=== PATIENT | female | born 1930 | race Caucasian/White ===

== ENCOUNTER 2017-07-30 15:28 | Inpatient (IN) | payer OTHER, MEDICARE ==
[~2017-07-30] VITALS: Ht 144.8 cm; Wt 58.1 kg
[~2017-07-30 15:28] MED LIST: ALBINS INH; ASPEC81 PO; ATOR-54 PO; INSDGIPEN SUBD; IPRASOL4 INH; LOSA1TAB PO; METH-848 PO; MULTTAB58 PO; NMN5 PO; PREG1CAP70 PO; PRLSR20 PO; TPRSR25 PO
[2017-07-30 23:22] VITALS: BP 160/69; PULSE 69; TEMP 36.9; O2SAT 93
[2017-07-30] MEDS ORDERED: SODIUM CHLORIDE 0.9% 1000ML 1,000 ML IV SCH (23:48)
[2017-07-31] VITALS (10 sets, daily range): BP systolic 135–161; BP diastolic 64–75; PULSE 65–84; TEMP 36.5–37.5; O2SAT 90–99; Ht 144.8 cm; Wt 58.1 kg
[2017-07-31] MEDS ORDERED: MAGNESIUM HYDROXIDE SUSP 30 ML UDC PO PRN
[2017-07-31] MEDS ORDERED: ONDANSETRON INJ 2 MG/ML 2 ML VIAL IV PRN
[2017-07-31] MEDS ORDERED: ACETAMINOPHEN 325 MG TAB PO PRN
[2017-07-31] MEDS ORDERED: POLYETHYLENE (MIRALAX) 17 GM PACK PO PRN
[2017-07-31] MEDS ORDERED: ALUMINUM/MAGNESIUM/SIMETH (MAALOX MAX) 30 ML UDC PO PRN
[2017-07-31] MEDS ORDERED: METHYLPREDNISOLONE IV 60 MG in SYRINGE 0 ML IV ONE (00:15)
--- NOTE | 2017-07-31 00:16 | History and Physical ---
History & Physical Date & Time of Service: Jul 31, 2017 at 00:10 Chief Complaint: Pneumonia Primary Care Physician: Naomi Hawley D.O. History of Present Illness Source: patient 87 year old female direct admit from [facility] for Hospital Acquired Pneumonia. She was brought to [facility] on the as she was "running a fever" and had a productive cough with green/yellow sputum. Her initial CXR at [facility] showed emphysema but was otherwise unremarkable; however the patient had an elevated WCC. At [facility] the patient was started on vanc, cefipime and flagyl and was started on supplemental oxygen. Repeat CXR the following day showed a RUL infiltrate as well as emphysema. At that point the patient was transferred to [facility] for further care. She has had associated decreased appetite and has felt tired. She denies any chest pain, weight loss of blood in her sputum Of note the [facility] and she has a history of aspiration. She was admitted to [facility] one year ago for pneumonia and since that discharge she has lived at a penitentiary. Past Medical/Surgical History HTN HLD Arthritis Dementia Hyperthyroidism DM Paroxysmal Afib Tricuspid regurg and increase PA pressures Social History Smoking Status: Never Smoker Alcohol Use: none Drug Use: none Housing status: penitentiary Occupational Status: retired Immunizations History of Pneumococcal: Yes Allergies Coded Allergies: No Known Allergies (Unverified , 06/19/16) Home Medications Scheduled Aspirin (Aspirin EC Low Dose), 81 MG PO DAILY Atorvastatin (Lipitor), 1 TAB PO HS Insulin Glargine (Lantus Solostar), 10 UNITS SUBD HS Ipratropium-Albuterol (Duoneb), 3 ML INH TIDR Losartan Potassium (Cozaar), 1 TAB PO HS Memantine (Namenda), 5 MG PO BID Methimazole (Methimazole), 1 TAB PO DAILY Metoprolol Succinate (Metoprolol Succinate ER), 25 MG PO BID Multiple Vitamin (Multivitamin), 1 TAB PO DAILY Omeprazole (Prilosec), 20 MG PO BID Pregabalin (Lyrica), 150 MG PO HS Scheduled PRN Albuterol Sulf (Albuterol Sulfate), 2.5 MG INH Q4 PRN for SOB/wheezing Review of Systems Constitutional: + fever, + chills, + fatigue, No sweats, No weight loss Respiratory: + cough, + sputum, No wheezing, No shortness of breath Cardiovascular: No chest pain, No edema, No palpitations Abdomen: No pain, No nausea, No vomiting, No diarrhea, No constipation Musculoskeletal: No joint pain, No muscle pain, No calf pain Genitourinary - Female: No dysuria, No urinary frequency, No urinary urgency Physical Exam Vital Signs Date Time Temp Pulse Resp B/P (MAP) Pulse Ox O2 Delivery O2 Flow Rate FiO2 07/30/17 23:22 36.9 69 19 160/69 (99) 93 Nasal Cannula 4.0 General Appearance: WD/WN, no apparent distress ENT: hearing grossly normal, pharynx normal Neck: no adenopathy, no JVD, no carotid bruits, trachea midline Respiratory/Chest: + decreased breath sounds (bilaterally), + rhonchi (diffuse rhonchi), + wheezing (mild wheezing bilaterally) Cardiovascular: regular rate, rhythm, no edema, normal peripheral pulses, + systolic murmur (2/6) Abdomen/GI: normal bowel sounds, non tender, soft Extremities/Musculoskelatal: no calf tenderness, no pedal edema, normal range of motion, non-tender Neurologic/Psych: alert, normal mood/affect, oriented x 3 Diagnostics Laboratory Results Microbiology Results 07/30/17 Blood Culture, Ordered Pending 07/30/17 Blood Culture, Ordered Pending 07/30/17 Gram Stain, Ordered Pending 07/30/17 Sputum Culture, Ordered Pending Impression Assessment and Plan 87 year old female transferred as a direct admit from [facility] with a hospital acquired pneumonia Hospital Acquired Pneumonia - Start IV antibiotics with Vanc, Cefepime and Azithromycin - Gentle IV hydration with 80 mls/hr - Duoneb TID - IV methylprednisolone given as one time dose as patient wheezing, reassess for continuation - Oxygen via nasal cannula w/ titration to 88-92% - Order blood cultures, sputum cultures - Ordered repeat CXR for the AM - Follow CBC and procalcitonin Paroxysmal Afib - currently in NSR - monitor on telemetry - continue sotalol 80 bid, EKG showed prolonged QT of 457, talk to cardiology and considering changing rate control HTN/tricuspid regurg - On lasix 20mg - Echo in 2017 showed EF of 60% with severe tricuspid regurg and increased PA pressures Dementia - continue namenda HLD - continue statin Depression - continue zoloft Hyperthyroidism - continue methimazole Hx of DM - no longer requiring medication DVT prophylaxis - heparin DNR Resident Physician Supervision Note: I was present with Dr. Gr during the history and exam. I discussed the case with the resident and agree with the findings and plan as documented in the note. Any exceptions or clarifications are listed here: 87 y/o F HTN, PAF, dementia - presenting direct from [facility] with HCAP OE AAO x 2 S1,2 faint +m B/L crackles - poor effort - coughing during exam NT, ND No CCE P: Placed on Cefepime, Vanc, Zithro for HCAP - nebs provided - would consider steroids if breathing does not improve Cont Sotalol for PAF Pt will need PT/OT - very weak and may need rehab placement Above discussed with pt and resident Documented By: Catalino Gonzalez Level of Care Telemetry Resuscitation Status DO NOT RESUSCITATE VTE Prophylaxis VTE Risk Assessment Done? Y/N: Yes Risk Level: Moderate Given or contraindicated: Enoxaparin (Lovenox)SQ Social Service Consult Lives in Halfway
[2017-07-31] MEDS ORDERED: VANCOMYCIN CONSULT ACTIVE PRN (01:00)
[2017-07-31] MEDS ORDERED: Azithromycin: PHARMACY CONSULT IN PROGRESS PRN (01:00)
[2017-07-31] MEDS ORDERED: AZITHROMYCIN IV 500 MG in DEXTROSE 5% 250ML 250 ML IV SCH (01:00)
[2017-07-31] MEDS ORDERED: CEFEPIME CONSULT ACTIVE PRN ×2 (01:00)
[2017-07-31 01:37] LABS: CREATININE 0.62 mg/dl (0.60-1.20)
[2017-07-31] MEDS ORDERED: VANCOMYCIN INJ 1,250 MG in SODIUM CHLORIDE 0.9% 250ML 250 ML IV ONE (04:00)
[2017-07-31] MEDS: CEFEPIME IV 2,000 MG in DEXTROSE 5% 100ML 100 ML IV SCH ×2 (05:10→15:48)
[2017-07-31 06:03] LABS: HEMATOCRIT 32.2 % (37-47); MEAN CELL VOLUME 84.1 fL (80-100); MEAN CORPUSCULAR HEMOGLOBIN 25.8 pg (25-34); MEAN CORPUSCULAR HGB CONC 30.7 g/dl (32-36); MEAN PLATELET VOLUME 11.2 fL (7.4-10.4); PLATELET COUNT 240 K/uL (130-400); RED BLOOD COUNT 3.83 M/uL (4.2-5.4); WHITE BLOOD COUNT 9.26 K/uL (4.8-10.8)
[2017-07-31 06:20] LABS: INR 1.1 (0.9-1.1); PARTIAL THROMBOPLASTIN RATIO 1.2; PROTHROMBIN TIME (PATIENT) 11.3 SECONDS (9.0-12.0)
[2017-07-31 06:38] LABS: BUN/CREATININE RATIO 21.1 (10-20); CALCIUM 8.6 mg/dl (8.5-10.1); CREATININE 0.55 mg/dl (0.60-1.20); POTASSIUM 3.9 mmol/L (3.5-5.1)
[2017-07-31] MEDS: ALBUT/IPRATROP 3MG/0.5MG NEB 3 ML VIAL INH SCH ×2 (06:53→14:04)
[2017-07-31] MEDS: ENOXAPARIN 30 MG/0.3 ML SYR SC SCH (08:13)
[2017-07-31] MEDS: MULTIVITAMIN TAB PO SCH (08:13)
[2017-07-31] MEDS: PANTOprazole SOD 40 MG TAB PO SCH ×2 (08:13→21:41)
[2017-07-31] MEDS: METHIMAZOLE 5 MG TAB PO SCH (08:13)
[2017-07-31] MEDS: MEMANTINE 5 MG TAB PO SCH ×2 (08:13→21:41)
[2017-07-31] MEDS: ASPIRIN 81 MG ECTAB PO SCH (08:14)
[2017-07-31] MEDS: SOTALOL HCL 80 MG TAB PO SCH ×2 (08:14→21:41)
[2017-07-31] MEDS: FUROSEMIDE 20 MG TAB PO SCH (08:14)
[2017-07-31] MEDS: SERTRALINE HCL 50 MG TAB PO SCH (08:14)
--- NOTE | 2017-07-31 08:26 | Family Medicine Progress Note ---
Progress Note Date of Service Jul 31, 2017. Subjective Pt evaluation today including: conversation w/ patient, conversation w/ family , physical exam, chart review, lab review, review of studies, conversation w/ marketing operations consultant, review of inpatient medication list Patient lying comfortably in bed. States that she is feeling no better or worse than previous. She continues to have coughing, but states that she is bringing less up than previous. She denies dyspnea with oxy mask on. She denies chest pain, palpitations, lightheadedness, nausea, abdominal pain. ROS unremarkable except as noted above. Objective Vital Signs Date Time Temp Pulse Resp B/P (MAP) Pulse Ox O2 Delivery O2 Flow Rate FiO2 07/31/17 06:13 36.7 81 18 156/74 (101) 93 Oxymask 4.0 07/31/17 04:00 96 Nasal Cannula 4.0 07/31/17 00:01 37.5 71 24 158/75 96 Nasal Cannula 4.0 07/30/17 23:22 36.9 69 19 160/69 (99) 93 Nasal Cannula 4.0 Physical Exam General Appearance: WD/WN, no apparent distress Eyes: normal inspection ENT: + pertinent finding (hard a hearing) Neck: supple, no adenopathy Respiratory/Chest: no respiratory distress, no accessory muscle use, + decreased breath sounds, + rales, + rhonchi, + wheezing, + pertinent finding ( decreased air movement bilaterally) Cardiovascular: regular rate, rhythm, + normal peripheral pulses Abdomen: normal bowel sounds, non tender, soft Extremities: normal inspection, no pedal edema, no calf tenderness Neurologic/Psychiatric: alert, normal mood/affect Skin: normal color, warm/dry, no rash Laboratory Results Results Past 24 Hours Test 07/31/17 01:02 07/31/17 05:25 Range/Units Creatinine 0.62 0.55 0.60-1.20 mg/dl Est Creatinine Clear Calc Drug Dose 44.4 50.1 ml/min Estimated GFR () 92.7 96.4 Estimated GFR (Non- 79.9 83.2 Random Vancomycin Level 5.2 mcg/ml White Blood Count 9.26 4.8-10.8 K/uL Red Blood Count 3.83 4.2-5.4 M/uL Hemoglobin 9.9 12.0-16.0 g/dL Hematocrit 32.2 37-47 % Mean Corpuscular Volume 84.1 80-100 fL Mean Corpuscular Hemoglobin 25.8 25-34 pg Mean Corpuscular Hemoglobin Concent 30.7 32-36 g/dl RDW Standard Deviation 48.1 36.4-46.3 fL RDW Coefficient of Variation 15.6 11.5-14.5 % Platelet Count 240 130-400 K/uL Mean Platelet Volume 11.2 7.4-10.4 fL Prothrombin Time 11.3 9.0-12.0 SECONDS Prothromb Time International Ratio 1.1 0.9-1.1 Activated Partial Thromboplast Time 30.7 21.0-31.0 SECONDS Partial Thromboplastin Ratio 1.2 Sodium Level 134 136-145 mmol/L Potassium Level 3.9 3.5-5.1 mmol/L Chloride Level 99 98-107 mmol/L Carbon Dioxide Level 30 21-32 mmol/L Anion Gap 5.0 3-11 mmol/L Blood Urea Nitrogen 12 7-18 mg/dl BUN/Creatinine Ratio 21.1 10-20 Random Glucose 208 70-99 mg/dl Calcium Level 8.6 8.5-10.1 mg/dl Phosphorus Level 3.0 2.5-4.9 mg/dl Magnesium Level 1.9 1.8-2.4 mg/dl Procalcitonin < 0.05 0-0.5 ng/ml Microbiology Results 07/31/17 Blood Culture, Received Pending 07/31/17 Blood Culture, Received Pending Assessment and Plan 87 year old female directly admitted from [facility] with a healthcare associated pneumonia. Healthcare associated Pneumonia - Oxygen via NC/oxy mask. Titration to maintain sats 88-92% - CXR 07/31/17 shows: Hyperinflation suggesting emphysema, and RUL opacity. Initial procal negative. - Continue IV antibiotics: vancomycin and cefepime. Azithromycin switched to levofloxacin. - IV methylprednisolone 60mg TID. Plans for 2-3 day burst only. - DuoNeb TID, flutter valve - Blood cultures pending, sputum sample not yet collected for culturing - Trend CBC Paroxysmal Afib - Currently in NSR. Continue to monitor on telemetry - Continue sotalol 80 bid - Initial EKG showed prolonged QT of 457. Monitor on EKG tomorrow to assure that sotolol and levofloxacin don't further prolonged QT HTN/tricuspid regurg - On furosemide 20mg and Losartan 25mg qHS. Metoprolol 25mg BID held at this time due to initiation of sotalol, but can be added if necessary and adequate HR. - Echo in 2016 showed EF of 60% with severe tricuspid regurg and increased PA pressures Dementia - Continue Namenda HLD - Continue atorvastatin 20mg Depression - Continue Zoloft Hyperthyroidism - Continue methimazole Hx of DM - HbA1c in June 2017 was 7.3 - ISS + BSG ac/hs DVT prophylaxis -Enoxaparin 30 units SC DNR Continued [facility] stay due to: multiple IV medications needed Discharge planning: halfway facility Resident Tracking Resident Involvement: Resident Care Provided Care Provided: Adult Hospital Medicine History Resident Physician Supervision Note: I was present with Dr. Watkins during the history and exam. I discussed the case with the resident and agree with the findings and plan as documented in the note. Any exceptions or clarifications are listed here. Pt seen and examined at bedside. Reports shortness of breath is minimally improved from admission but is more comfortable on oxygen at this time. Cough is persistent and nonproductive. Reports no fever, nausea, constipation. General Appearance: no apparent distress, thin Respiratory: chest non-tender, no respiratory distress, decreased breath sounds , rhonchi, wheezing (significantly decreased breath sounds throughout) Cardiovascular: normal peripheral pulses, regular rate, rhythm, systolic murmur (2/) Neurologic/Psychiatric: alert, normal mood/affect Assessment/Plan 87 y/o female h/o dementia, atrial fibrillation presents w/ HCAP HCAP - continue vanc, cefepime, change azithromycin to levofloxacin, d/c IVF ( tolerating PO), continue nebs, f/u BCx. If any worsening/failure to improve, will start IV solu-medrol. Encourage good pulmonary toilet. Atrial fibrillation - telemetry monitoring, continue sotaolol HTN w/ h/o tricuspid regurgitation - EF 60% - continue lasix Dementia - continue namenda HLD - continue statin Depression - continue zoloft Hyperthyroidism - continue methimazole DMII - sugars stable at home but may require ISS 2/2 steroid induced hyperglycemia if intervention is required
--- NOTE | 2017-07-31 09:22 | DIAGNOSTIC IMAGING REPORT ---
CHEST 2 VIEWS ROUTINE CLINICAL HISTORY: 87 years-old Female presenting with Pneumonia. TECHNIQUE: PA and lateral views of the chest were obtained. COMPARISON: 07/05/2016. FINDINGS: Cardiac silhouette top normal in size. Significant interval clearance of previously noted patchy bilateral opacities. Right upper lung opacity may be present. Lungs hyperinflated. No large effusion or pneumothorax. Degenerative changes of the thoracic spine. Upper abdomen normal. IMPRESSION: 1. Hyperinflation suggests emphysema. 2. Right upper lung opacity raises concern for an acute infiltrate/pneumonia. Alternatively, this could represent scarring in the setting of prior widespread patchy opacities. Electronically signed by: Nasir rWight M.D. 07/31/2017 9:21 AM Dictated Date/Time: 07/31/2017 9:18 AM
--- NOTE | 2017-07-31 11:09 | Pharmacy Progress Note ---
Pharmacy Antibiotic Consult Date of Service: Jul 31, 2017. Pharmacy Dosing Scope Pharmacy is consulted to initiate vancomycin IV dosing therapy, order appropriate labs and adjust drug dose/frequency. Subjective The patient is a 87 year old female admitted on Jul 30, 2017 at 22:51. Objective Height (Feet): 4 Height (Inches): 9.00 Weight (Kilograms): 56.400 Lab Results (24hrs): Test 07/31/17 01:02 07/31/17 05:25 Creatinine 0.62 mg/dl (0.60-1.20) 0.55 mg/dl (0.60-1.20) Est Creatinine Clear Calc Drug Dose 44.4 ml/min 50.1 ml/min Estimated GFR () 92.7 96.4 Estimated GFR (Non- 79.9 83.2 Random Vancomycin Level 5.2 mcg/ml White Blood Count 9.26 K/uL (4.8-10.8) Red Blood Count 3.83 M/uL (4.2-5.4) Hemoglobin 9.9 g/dL (12.0-16.0) Hematocrit 32.2 % (37-47) Mean Corpuscular Volume 84.1 fL (80-100) Mean Corpuscular Hemoglobin 25.8 pg (25-34) Mean Corpuscular Hemoglobin Concent 30.7 g/dl (32-36) RDW Standard Deviation 48.1 fL (36.4-46.3) RDW Coefficient of Variation 15.6 % (11.5-14.5) Platelet Count 240 K/uL (130-400) Mean Platelet Volume 11.2 fL (7.4-10.4) Prothrombin Time 11.3 SECONDS (9.0-12.0) Prothromb Time International Ratio 1.1 (0.9-1.1) Activated Partial Thromboplast Time 30.7 SECONDS (21.0-31.0) Partial Thromboplastin Ratio 1.2 Sodium Level 134 mmol/L (136-145) Potassium Level 3.9 mmol/L (3.5-5.1) Chloride Level 99 mmol/L (98-107) Carbon Dioxide Level 30 mmol/L (21-32) Anion Gap 5.0 mmol/L (3-11) Blood Urea Nitrogen 12 mg/dl (7-18) BUN/Creatinine Ratio 21.1 (10-20) Random Glucose 208 mg/dl (70-99) Calcium Level 8.6 mg/dl (8.5-10.1) Procalcitonin < 0.05 ng/ml (0-0.5) Recent Pertinent Medications Patient also started on cefepime and azithromycin. Spoke with resident about the indication for azithromycin if this is a HAP. Also expressed caution with use of azithromycin or FQs with sotalol therapy. Assessment & Plan Patient assisted resident transferred in from [facility] with suspected HAP. Scr most likely not indicative of true renal function. Loading dose: 1250 mg IV X 1 dose then: 750 mg IV every 24 hours. Goal trough level estimate: between 15 - 20 mcg/mL. Peak and trough or random level has been ordered for: @0130 (may alter as clinically indicated) Pharmacy will continue to follow and will adjust dose/frequency as necessary. Thank you
[2017-07-31 11:52] LABS: MAGNESIUM 1.9 mg/dl (1.8-2.4)
[2017-07-31] MEDS: LEVOFLOXACIN / D5W 500 MG in PREMIXED IN D5W 100 ML IV SCH (13:58)
[2017-07-31] MEDS ORDERED: GLUCAGON FOR INJ 1 MG VIAL SQ PRN (19:15)
[2017-07-31] MEDS ORDERED: GLUCOSE 40% GEL 15 GM TUBE PO PRN (19:15)
[2017-07-31] MEDS ORDERED: GLUCOSE 10 TABS/TUBE PO PRN (19:15)
[2017-07-31] MEDS: INSULIN ASPART 100 UNITS/ML 3 ML PEN SC SCH (21:00)
[2017-07-31] MEDS ORDERED: METOPROLOL SUCC 25MG EXT REL TAB PO SCH (21:00)
[2017-07-31] MEDS: ATORVASTATIN 20 MG TAB PO SCH (21:41)
[2017-07-31] MEDS: LOSARTAN POTASSIUM 25 MG TAB PO SCH (21:41)
[2017-07-31] MEDS: METHYLPREDNISOLONE IV 60 MG in SYRINGE 0 ML IV SCH (21:41)
[2017-07-31] MEDS: PREGABALIN 150 MG CAP PO SCH (21:44)
[2017-08-01] VITALS (16 sets, daily range): BP systolic 144–189; BP diastolic 57–73; PULSE 60–73; TEMP 36.4–36.9; O2SAT 90–97
[2017-08-01] MEDS: CEFEPIME IV 2,000 MG in DEXTROSE 5% 100ML 100 ML IV SCH ×2 (02:14→15:18)
[2017-08-01] MEDS: VANCOMYCIN INJ 750 MG in SODIUM CHLORIDE 0.9% 250ML 250 ML IV SCH (02:15)
[2017-08-01] MEDS: METHYLPREDNISOLONE IV 60 MG in SYRINGE 0 ML IV SCH ×3 (05:03→20:40)
[2017-08-01 06:16] LABS: HEMATOCRIT 29.7 % (37-47); MEAN CORPUSCULAR HEMOGLOBIN 26.8 pg (25-34); MEAN CORPUSCULAR HGB CONC 32.3 g/dl (32-36); MEAN PLATELET VOLUME 10.8 fL (7.4-10.4); PLATELET COUNT 249 K/uL (130-400); RED BLOOD COUNT 3.58 M/uL (4.2-5.4); WHITE BLOOD COUNT 9.47 K/uL (4.8-10.8)
[2017-08-01 06:53] LABS: BUN/CREATININE RATIO 28.2 (10-20); CALCIUM 8.1 mg/dl (8.5-10.1); CREATININE 0.62 mg/dl (0.60-1.20); POTASSIUM 4.1 mmol/L (3.5-5.1)
[2017-08-01] MEDS: ALBUT/IPRATROP 3MG/0.5MG NEB 3 ML VIAL INH SCH ×3 (07:18→18:57)
--- NOTE | 2017-08-01 08:29 | Clinical Documentation Query ---
CLINICAL DOCUMENTATION QUERY 87 year old female direct admit from [facility] for Hospital Acquired Pneumonia. In your clinical opinion is this patient being managed for: ( x ) Possible Staphylococcal Vs. Gram negative pneumonia in setting of HCAP treated with IV IV Cefepime, IV Vancomycin, IV Levofloxacin ( ) Not Agree ( ) Other explanation of clinical findings (Please Explain) ( ) Unable to determine (Please Define) ( ) Need to Discuss The medical record reflects the following clinical findings, treatment, and risk factors. Clinical Indicators: CXR with right RUL infiltrate. Transfer from [facility] for more definitive treatment here. Exam reveals + decreased breath sounds (bilaterally), + rhonchi (diffuse rhonchi), & + wheezing (mild wheezing bilaterally) Treatment: IV Cefepime, IV Vancomycin, IV Levofloxacin, Nebs, IV Solumedrol Risk Factors: Age, emphysema, HCAP Please clarify and document your clinical opinion in the progress notes and discharge summary. Terms such as "probable", "suspected", "likely", "questionable", "possible", or "still to be ruled out" are acceptable. IF IN AGREEMENT, YOU MUST DOCUMENT ABOVE DIAGNOSTIC STATEMENT IN DAILY PROGRESS NOTES AND DISCHARGE SUMMARY. This document is not part of the patient's record. Thank You, Rubens Stone, JUAN [phone]
[2017-08-01] MEDS: SOTALOL HCL 80 MG TAB PO SCH ×2 (09:04→20:40)
[2017-08-01] MEDS: PANTOprazole SOD 40 MG TAB PO SCH ×2 (09:04→20:39)
[2017-08-01] MEDS: SERTRALINE HCL 50 MG TAB PO SCH (09:04)
[2017-08-01] MEDS: MULTIVITAMIN TAB PO SCH (09:04)
[2017-08-01] MEDS: ASPIRIN 81 MG ECTAB PO SCH (09:05)
[2017-08-01] MEDS: FUROSEMIDE 20 MG TAB PO SCH (09:05)
[2017-08-01] MEDS: METHIMAZOLE 5 MG TAB PO SCH (09:06)
[2017-08-01] MEDS: ENOXAPARIN 30 MG/0.3 ML SYR SC SCH (09:08)
[2017-08-01] MEDS: MEMANTINE 5 MG TAB PO SCH ×2 (09:08→20:40)
[2017-08-01] MEDS: INSULIN ASPART 100 UNITS/ML 3 ML PEN SC SCH ×4 (09:10→20:50)
--- NOTE | 2017-08-01 11:36 | Family Medicine Progress Note ---
Progress Note Date of Service Aug 01, 2017. Subjective Pt evaluation today including: conversation w/ patient, physical exam, chart review, lab review, conversation w/ solutions delivery consultant, review of inpatient medication list Pain: none PO Intake: good Voiding: no voiding problems Patient no longer with cough Denies any fevers, chills, night sweats or chest pain Feeling better and appetite improved Still on oxygen via nasal cannula Is wondering when she will be going home Constitutional: No fever, No chills, No sweats Respiratory: No cough, No sputum, No wheezing, No shortness of breath Cardiovascular: No chest pain, No edema, No palpitations Abdomen: No pain, No nausea, No vomiting, No diarrhea Musculoskeletal: No joint pain, No muscle pain Heme: No abnormal bleeding/bruising Skin: No rash, No itch, No new/changing skin lesions Medications Current Inpatient Medications Medications (Trade) Dose Ordered Sig/Shweta Route Start Time Stop Time Status Last Admin Dose Admin Enoxaparin Sodium (Lovenox Inj) 30 mg Q24H SC 07/31/17 09:00 08/30/17 08:59 08/01/17 09:08 30 MG Acetaminophen (Tylenol Tab) 650 mg Q4H PRN PO 07/31/17 00:00 08/30/17 00:00 Al Hydrox/Mg Hydrox/Simethicone (Maalox Max Susp) 15 ml Q4H PRN PO 07/31/17 00:00 08/30/17 00:00 Magnesium Hydroxide (Milk Of Magnesia Susp) 30 ml Q12H PRN PO 07/31/17 00:00 08/30/17 00:00 Ondansetron HCl (Zofran Inj) 4 mg Q6H PRN IV 07/31/17 00:00 08/30/17 00:00 Polyethylene (Miralax Powder Packet) 17 gm DAILY PRN PO 07/31/17 00:00 08/30/17 00:00 Cefepime HCl 2000 mg/Dextrose 112.5 ml @ 200 mls/hr Q12H IV 07/31/17 03:00 08/07/17 02:59 08/01/17 02:14 200 MLS/HR Aspirin (Ecotrin Tab) 81 mg DAILY PO 07/31/17 09:00 08/30/17 08:59 08/01/17 09:05 81 MG Atorvastatin Calcium (Lipitor Tab) 20 mg HS PO 07/31/17 21:00 08/30/17 20:59 07/31/17 21:41 20 MG Albuterol/ Ipratropium (Duoneb) 3 ml TIDR INH 07/31/17 09:00 08/30/17 08:59 08/01/17 07:18 3 ML Memantine (Namenda Tab) 5 mg BID PO 07/31/17 09:00 08/30/17 08:59 08/01/17 09:08 5 MG Methimazole (Methimazole Tab) 5 mg DAILY PO 07/31/17 09:00 08/30/17 08:59 08/01/17 09:06 5 MG Multivitamins (Multivitamin Tab) 1 tab DAILY PO 07/31/17 09:00 08/30/17 08:59 08/01/17 09:04 1 TAB Pantoprazole Sodium (Protonix Tab) 40 mg BID PO 07/31/17 09:00 08/30/17 08:59 08/01/17 09:04 40 MG Furosemide (Lasix Tab) 20 mg QAM PO 07/31/17 09:00 08/30/17 08:59 08/01/17 09:05 20 MG Sertraline HCl (Zoloft Tab) 25 mg QAM PO 07/31/17 09:00 08/30/17 08:59 08/01/17 09:04 25 MG Sotalol HCl (Betapace Tab) 80 mg BID PO 07/31/17 09:00 08/30/17 08:59 08/01/17 09:04 80 MG Vancomycin HCl (Consult) 1 ea UD PRN N/A 07/31/17 01:00 08/30/17 00:59 Cefepime HCl (Consult) 1 ea UD PRN N/A 07/31/17 01:00 08/30/17 00:59 Vancomycin HCl 750 mg/Sodium Chloride 265 ml @ 125 mls/hr Q24H IV 08/01/17 02:00 08/08/17 01:59 08/01/17 02:15 125 MLS/HR Levofloxacin 500 mg/Prmx 100 ml @ 100 mls/hr DAILY@1300 IV 07/31/17 13:00 08/07/17 12:59 07/31/17 13:58 100 MLS/HR Methylprednisolone Sodium Succinate 60 mg/Syringe 0.96 ml @ 1.5 mls/min Q8H IV 07/31/17 21:00 08/30/17 20:59 08/01/17 05:03 1.5 MLS/MIN Pregabalin (Lyrica Cap) 150 mg HS PO 07/31/17 21:00 08/30/17 20:59 07/31/17 21:44 150 MG Glucagon (Glucagon Inj) 1 mg UD PRN SQ 07/31/17 19:15 08/30/17 19:14 Glucose (Glucose 40% Gel) UD PRN PO 07/31/17 19:15 08/30/17 19:14 Glucose (Glucose Chew Tab) 1 tabs UD PRN PO 07/31/17 19:15 08/30/17 19:14 Insulin Aspart (novoLOG ASPART) SLIDING SCALE If C... ACHS SC 07/31/17 21:00 08/30/17 20:59 08/01/17 09:10 6 UNITS Losartan Potassium (coZAAR TAB) 25 mg HS PO 07/31/17 21:00 08/30/17 20:59 07/31/17 21:41 25 MG Objective Vital Signs Date Time Temp Pulse Resp B/P (MAP) Pulse Ox O2 Delivery O2 Flow Rate FiO2 08/01/17 07:18 67 18 95 Nasal Cannula 3.0 08/01/17 07:15 36.5 72 24 156/73 (100) 94 Nasal Cannula 2.5 08/01/17 04:06 Nasal Cannula 4.0 08/01/17 04:05 36.7 73 19 152/66 (94) 91 Nasal Cannula 4.0 08/01/17 00:27 36.9 65 19 172/65 (100) 90 Nasal Cannula 4.0 08/01/17 00:26 Nasal Cannula 4.0 07/31/17 20:11 37.0 77 20 135/64 (87) 90 Nasal Cannula 2.0 07/31/17 20:00 Nasal Cannula 4.0 07/31/17 19:30 78 18 96 Mask 3.0 07/31/17 16:05 Oxymask 4.0 07/31/17 15:44 36.5 65 16 161/74 (103) 99 Mask 5.0 07/31/17 14:06 74 20 98 Mask 5.0 07/31/17 12:05 Oxymask 4.0 Physical Exam General Appearance: WD/WN, no apparent distress Respiratory/Chest: lungs clear, no respiratory distress, no accessory muscle use, + decreased breath sounds (at the bases), + pertinent finding (poor inspiratory effort) Cardiovascular: regular rate, rhythm, no JVD, no murmur Abdomen: normal bowel sounds, non tender, soft Extremities: non-tender, no pedal edema, no calf tenderness Neurologic/Psychiatric: alert, normal mood/affect, oriented x 3 Skin: normal color, warm/dry, no rash Assessment and Plan 87 year old female directly admitted from [facility] with a healthcare associated pneumonia. Healthcare associated Pneumonia - Oxygen via NC/oxy mask. Titration to maintain sats 88-92% - CXR 07/31/17 shows: Hyperinflation suggesting emphysema, and RUL opacity. Initial procal negative. - Continue IV antibiotics: vancomycin and cefepime. Azithromycin switched to levofloxacin. - IV methylprednisolone 60mg TID. Plans for 2-3 day burst only. - DuoNeb TID, flutter valve - Blood cultures negative to date and without a WCC Paroxysmal Afib - Currently in NSR. Continue to monitor on telemetry - Continue sotalol 80 bid - Initial EKG showed prolonged QT of 457. Monitor on EKG tomorrow to assure that sotolol and levofloxacin don't further prolonged QT HTN/tricuspid regurg - On furosemide 20mg and Losartan 25mg qHS. Metoprolol 25mg BID held at this time due to initiation of sotalol, but can be added if necessary and adequate HR. - Echo in 2017 showed EF of 60% with severe tricuspid regurg and increased PA pressures Dementia - Continue Namenda HLD - Continue atorvastatin 20mg Depression - Continue Zoloft Hyperthyroidism - Continue methimazole Hx of DM - HbA1c in June 2017 was 7.3 - ISS + BSG ac/hs DVT prophylaxis -Enoxaparin 30 units SC DISPO: Back to senior living, ordered PT/OT DNR Anticipate d/c in am. Continued [facility] stay due to: multiple IV medications needed Reviewed: Pt Seen/Exam by Me History breathing much better denies any concerns Constitutional: denies: fever Respiratory: negative: short of breath Cardiovascular: denies chest pain General Appearance: no apparent distress Respiratory: lungs clear, no respiratory distress Cardiovascular: regular rate, rhythm Neurologic/Psychiatric: alert, oriented x 3 (hard of hearing though) Skin Characteristics: warm/dry Assessment/Plan Resident Physician Supervision Note: I was present with Dr. Fournier in bedside. I verified the jett history and physical, reviewed labs and image studies, discussed the case with the resident and agree with the findings and care plan.
[2017-08-01] MEDS: LEVOFLOXACIN / D5W 500 MG in PREMIXED IN D5W 100 ML IV SCH (13:07)
[2017-08-01] MEDS ORDERED: PREGABALIN 150 MG CAP ONE (20:33)
[2017-08-01] MEDS: ATORVASTATIN 20 MG TAB PO SCH (20:39)
[2017-08-01] MEDS: LOSARTAN POTASSIUM 25 MG TAB PO SCH (20:39)
[2017-08-01] MEDS: PREGABALIN 150 MG CAP PO SCH (20:39)
[2017-08-02] VITALS (8 sets, daily range): BP systolic 158–168; BP diastolic 63–74; PULSE 50–68; TEMP 36.4–36.7; O2SAT 90–97
[2017-08-02] MEDS: VANCOMYCIN INJ 750 MG in SODIUM CHLORIDE 0.9% 250ML 250 ML IV SCH (03:10)
[2017-08-02] MEDS: CEFEPIME IV 2,000 MG in DEXTROSE 5% 100ML 100 ML IV SCH (03:10)
--- NOTE | 2017-08-02 04:44 | Clinical Documentation Query ---
CLINICAL DOCUMENTATION QUERY 87 year old female direct admit from [facility] for Hospital Acquired Pneumonia. In your clinical opinion is this patient being managed for: ( x ) Possible Staphylococcal Vs. Gram negative pneumonia in setting of HCAP treated with IV IV Cefepime, IV Vancomycin, IV Levofloxacin ( ) Not Agree ( ) Other explanation of clinical findings (Please Explain) ( ) Unable to determine (Please Define) ( ) Need to Discuss The medical record reflects the following clinical findings, treatment, and risk factors. Clinical Indicators: CXR with right RUL infiltrate. Transfer from [facility] for more definitive treatment here. Exam reveals + decreased breath sounds (bilaterally), + rhonchi (diffuse rhonchi), & + wheezing (mild wheezing bilaterally) Treatment: IV Cefepime, IV Vancomycin, IV Levofloxacin, Nebs, IV Solumedrol Risk Factors: Age, emphysema, HCAP Please clarify and document your clinical opinion in the progress notes and discharge summary. Terms such as "probable", "suspected", "likely", "questionable", "possible", or "still to be ruled out" are acceptable. IF IN AGREEMENT, YOU MUST DOCUMENT ABOVE DIAGNOSTIC STATEMENT IN DAILY PROGRESS NOTES AND DISCHARGE SUMMARY. This document is not part of the patient's record. Thank You, Rubens Stone, JUAN [phone]
[2017-08-02] MEDS: METHYLPREDNISOLONE IV 60 MG in SYRINGE 0 ML IV SCH ×2 (05:57→13:09)
[2017-08-02 06:11] LABS: COMPLETE YES; HEMATOCRIT 32.9 % (37-47); IG% 0.3 %; LYMPH % 5.2 %; LYMPH ABS # 0.51 K/uL (1.2-3.4); MEAN CELL VOLUME 84.1 fL (80-100); MEAN CORPUSCULAR HEMOGLOBIN 26.1 pg (25-34); MONO % 2.7 %; NEUT % 91.8 %; PLATELET COUNT 281 K/uL (130-400); RED BLOOD COUNT 3.91 M/uL (4.2-5.4); WHITE BLOOD COUNT 9.87 K/uL (4.8-10.8)
[2017-08-02 06:55] LABS: CREATININE 0.61 mg/dl (0.60-1.20)
[2017-08-02] MEDS: ALBUT/IPRATROP 3MG/0.5MG NEB 3 ML VIAL INH SCH (07:09)
[2017-08-02] MEDS: SERTRALINE HCL 50 MG TAB PO SCH (08:48)
[2017-08-02] MEDS: PANTOprazole SOD 40 MG TAB PO SCH (08:48)
[2017-08-02] MEDS: ASPIRIN 81 MG ECTAB PO SCH (08:48)
[2017-08-02] MEDS: FUROSEMIDE 20 MG TAB PO SCH (08:49)
[2017-08-02] MEDS: SOTALOL HCL 80 MG TAB PO SCH (08:51)
[2017-08-02] MEDS: MEMANTINE 5 MG TAB PO SCH (08:51)
[2017-08-02] MEDS: METHIMAZOLE 5 MG TAB PO SCH (08:51)
[2017-08-02] MEDS: MULTIVITAMIN TAB PO SCH (08:52)
[2017-08-02] MEDS: ENOXAPARIN 30 MG/0.3 ML SYR SC SCH (08:53)
[2017-08-02] MEDS: INSULIN ASPART 100 UNITS/ML 3 ML PEN SC SCH ×2 (08:57→12:12)
--- NOTE | 2017-08-02 10:18 | Pharmacy Progress Note ---
Automatic IV to PO Conversion Date of Service: Aug 02, 2017. Scope Pharmacy has identified patient as an appropriate candidate for automatic intravenous to oral conversion. Eligible medication: LVQ 500mg IV every 24 hours. Day # 2 of IV therapy. Subjective The patient is a 87 year old female admitted on Jul 30, 2017 at 23:48 for Pneumonia. Objective Vital Signs: Vital Signs Past 12 Hours Date Time Temp Pulse Resp B/P (MAP) Pulse Ox O2 Delivery O2 Flow Rate FiO2 08/02/17 08:14 36.4 60 16 161/69 (99) 90 Nasal Cannula 08/02/17 07:09 68 16 97 Nasal Cannula 3.0 08/02/17 04:00 93 Nasal Cannula 3.0 08/02/17 03:59 36.7 66 17 168/63 (98) 95 Nasal Cannula 2.0 08/01/17 23:59 93 Nasal Cannula 3.0 08/01/17 23:57 36.5 61 18 169/66 (100) 93 Nasal Cannula 2.0 White Blood Count: Test 08/02/17 05:39 White Blood Count 9.87 K/uL (4.8-10.8) Red Blood Count 3.91 M/uL (4.2-5.4) Hemoglobin 10.2 g/dL (12.0-16.0) Hematocrit 32.9 % (37-47) Mean Corpuscular Volume 84.1 fL (80-100) Mean Corpuscular Hemoglobin 26.1 pg (25-34) Mean Corpuscular Hemoglobin Concent 31.0 g/dl (32-36) Platelet Count 281 K/uL (130-400) Mean Platelet Volume 11.0 fL (7.4-10.4) Neutrophils (%) (Auto) 91.8 % Lymphocytes (%) (Auto) 5.2 % Monocytes (%) (Auto) 2.7 % Eosinophils (%) (Auto) 0.0 % Basophils (%) (Auto) 0.0 % Neutrophils # (Auto) 9.06 K/uL (1.4-6.5) Lymphocytes # (Auto) 0.51 K/uL (1.2-3.4) Monocytes # (Auto) 0.27 K/uL (0.11-0.59) Eosinophils # (Auto) 0.00 K/uL (0-0.5) Basophils # (Auto) 0.00 K/uL (0-0.2) Height (Feet): 4 Height (Inches): 9.00 Weight (Kilograms): 58.100 Type of Diet: Diabetic AHA Phase I Assessment & Plan The Infectious Disease Society and the [place] [employer] recommend conversion to oral therapy once a patient is determined to be clinically stable and are able to tolerate oral medications. Patient identified as appropriate candidate for IV to PO conversion of LVQ 500mg QD based on the following criteria: * Afebrile for greater than or equal to 12 hours * Receiving oral/enteral medications and/or tolerating oral/enteral diet for greater than 24 hours * Improvement in clinical condition evidenced by .. WBC count of 9.87 10^3/uL and trending downward, resolution of signs/symptoms of illness * Hemodynamically stable or * Receiving oral medications and/or tolerating oral diet for greater than 24 hours Automatic conversion to: LVQ 500mg PO every 24 hours
[2017-08-02] MEDS ORDERED: AMOX875T PO (10:28)
--- NOTE | 2017-08-02 10:32 | Discharge Instructions ---
Discharge Instructions Date of Service Aug 02, 2017. Admission Reason for Admission: Pneumonia Discharge Discharge Diagnosis / Problem: Pneumonia Discharge Goals Goal(s): Therapeutic intervention, Prevent Disease Progression Activity Recommendations Activity Level: Up Ad Sandy . Additional Information Patient informed of condition: Yes Advance Directives: Yes DNR: Yes Level of Care: Skilled Communicable Disease: No Prognosis: Improving Instructions / Follow-Up Instructions / Follow-Up Patient was diagnosed with pneumonia She was discharged with 4 more days of antibiotic treatment. She will be going back to the alf with supplement oxygen as needed. You will be able to wean this down as appropriate over the next few days. If she experiences increasing confusion, worsening cough, chest pain, fevers or increasing oxygen requirements then please send her back to the emergency department Current Hospital Diet Patient's current hospital diet: Diabetes Type 2 Diet Discharge Diet Recommended Diet: Diabetes Type 2 Diet Pending Studies Studies pending at discharge: no Medical Emergencies . Who to Call and When: Medical Emergencies: If at any time you feel your situation is an emergency, please call 911 immediately. . Non-Emergent Contact Non-Emergency issues call your: Primary Care Provider . . "Provider Documentation" section prepared by Earnest Fournier. . Core Measure Problem Core Measures: None
--- NOTE | 2017-08-02 10:39 | Discharge Summary ---
Discharge Summary Date of Service Aug 02, 2017. (Earnest Fournier MD) Discharge Summary Admission Date: Jul 30, 2017 at 23:48 Discharge Date: Aug 02, 2017 Discharge Disposition: [facility] facility Principal Diagnosis: Pneumonia Immunizations: History of Pneumococcal: Yes (Earnest Fournier MD) Problems/Secondary Diagnoses: Possible Staphylococcal Vs. Gram negative pneumonia in setting of HCAP initially treated with IV IV Cefepime, IV Vancomycin, IV Levofloxacin. With negative cultures - discharged on augmentin (Susannah Dee M.D.) Medication Reconciliation New Medications: Amoxicillin & Pot Clavulanate (Augmentin 875-125 mg) 1 Tab Tab 1 TAB PO BID for 4 Days, #8 TAB Continued Medications: Albuterol Sulf (Albuterol Sulfate) 2.5 Mg/3 Ml Nebu 2.5 MG INH Q4 PRN for SOB/wheezing for 30 Days, #120 UNITS 0 Refills Aspirin (Aspirin EC Low Dose) 81 Mg Ectab 81 MG PO DAILY for 30 Days Atorvastatin (Lipitor) 20 Mg Tab 1 TAB PO HS for 90 Days, TAB 1 Refill Insulin Glargine (Lantus Solostar) 100 Unit/Ml Inj 10 UNITS SUBD HS for 30 Days, #1 0 Refills Ipratropium-Albuterol (Duoneb) 3 Ml Nebu 3 ML INH TIDR for 30 Days, #90 UNITS 0 Refills Losartan Potassium (Cozaar) 25 Mg Tab 1 TAB PO HS for 30 Days, TAB 5 Refills Memantine (Namenda) 5 Mg Tab 5 MG PO BID, TAB Methimazole (Methimazole) 5 Mg Tab 1 TAB PO DAILY Metoprolol Succinate (Metoprolol Succinate ER) 25 Mg Tabcr 25 MG PO BID for 30 Days, #60 0 Refills Multiple Vitamin (Multivitamin) 1 Tab Tab 1 TAB PO DAILY for 90 Days, #90 TAB 3 Refills Omeprazole (Prilosec) 20 Mg Capcr 20 MG PO BID, CAP Pregabalin (Lyrica) 150 Mg Cap 150 MG PO HS, CAP Discharge Exam Patient without any complaints today She is still having oxygen requirements via nasal cannula. Her cough has improved and she is no longer feeling short of breath at rest Review of Systems: Constitutional: No fever, No chills, No sweats Respiratory: No cough, No sputum, No shortness of breath, No dyspnea on exertion Cardiovascular: No chest pain, No claudication, No palpitations Abdomen: No pain, No nausea, No vomiting, No diarrhea, No constipation Genitourinary - Female: No dysuria, No urinary frequency, No hematuria Neurologic: No paralysis, No weakness, No numbness/tingling (Earnest Fournier MD) Review of Systems: Constitutional: No fever Respiratory: No shortness of breath Cardiovascular: No chest pain Abdomen: No pain Physical Exam: General Appearance: no apparent distress ENT: + pertinent finding (hearing loss +) Respiratory/Chest: lungs clear, no respiratory distress Cardiovascular: regular rate, rhythm Neurologic/Psychiatric: alert, + pertinent finding (oriented to place and person. ) (Susannah Dee M.D.) Hospital Course 87 year old female transferred as a direct admit from [facility] with a hospital acquired pneumonia Hospital Acquired Pneumonia - Start IV antibiotics with Vanc, Cefepime and Azithromycin - Gentle IV hydration with 80 mls/hr - Duoneb TID - IV methylprednisolone give 60mg Q8 - Oxygen via nasal cannula w/ titration to maintain O2 88-92% - Blood cultures negative >24 hours upon discharge - afebrile with no wcc on discharge - Patient with emphysema on CXR - DISCHARGED WITH 4 MORE DAYS OF AUGMENTIN Paroxysmal Afib - currently in NSR - monitor on telemetry - continue sotalol 80 bid HTN/tricuspid regurg - On lasix 20mg - Echo in 2017 showed EF of 60% with severe tricuspid regurg and increased PA pressures Dementia - continue namenda HLD - continue statin Depression - continue zoloft Hyperthyroidism - continue methimazole Hx of DM - no longer requiring medication DVT prophylaxis - heparin DNR Total Time Spent: Less than 30 minutes This includes examination of the patient, discharge planning, medication reconciliation, and communication with other providers. (Earnest Fournier MD) Resident Physician Supervision Note: I was present with Dr. Fournier in bedside. I verified the jett history and physical, reviewed labs and image studies, discussed the case with the resident and agree with the findings and care plan. Total Time Spent: Greater than 30 minutes (35) (Susannah Dee M.D.) Discharge Instructions Please refer to the electronic Patient Visit Report (Discharge Instructions) for additional information. (Earnest Fournier MD) Additional Copies To SAVITA MAGANA D.O.
[2017-08-02] MEDS ORDERED: LEVOFLOXACIN 500 MG TAB PO SCH (13:00)
[2017-08-03] MEDS ORDERED: VANCOMYCIN TROUGH ONE (01:30)
== END 2017-08-02 13:30 | DRG 179 ==
LOC: C.2T 22:51 → UNDOADMIN 22:51 → C.2T 23:48
PROVIDERS: ADMIT Hospitalist; ATTEND Family Medicine
DX: J15.6 Pneumonia due to other Gram-negative bacteria (principal); J15.20 Pneumonia due to staphylococcus, unspecified; Y95 Nosocomial condition; J43.9 Emphysema, unspecified; I48.0 Paroxysmal atrial fibrillation; I07.1 Rheumatic tricuspid insufficiency; I10 Essential (primary) hypertension; E11.9 Type 2 diabetes mellitus without complications; E05.90 Thyrotoxicosis, unspecified without thyrotoxic crisis or storm; E78.5 Hyperlipidemia, unspecified; M19.90 Unspecified osteoarthritis, unspecified site; F32.9 Major depressive disorder, single episode, unspecified; F03.90 Unspecified dementia, unspecified severity, without behavioral disturbance, psychotic disturbance, mood disturbance, and anxiety; Z66 Do not resuscitate; Z79.4 Long term (current) use of insulin; Z79.82 Long term (current) use of aspirin; Z79.899 Other long term (current) drug therapy